=== PATIENT | female | born 1970 | race Caucasian/White ===

== ENCOUNTER 2022-12-08 14:58 | Outpatient (NON) | payer OTHER, SELFPAY | END 2022-12-08 14:59 | disposition home or self-care (01) | PROVIDERS: PCP Family Medicine; Visit Provider Nurse Practitioner | DX: C44.712 Basal cell carcinoma of skin of right lower limb, including hip (principal) | CPT/HCPCS: 88305 ==

== ENCOUNTER 2022-12-28 09:00 | Outpatient (NON) | payer OTHER, SELFPAY | END 2022-12-28 09:01 | disposition home or self-care (01) | LOC: ANHLAB 12-30 12:16 | PROVIDERS: PCP Family Medicine; Visit Provider Nurse Practitioner | DX: D48.5 Neoplasm of uncertain behavior of skin (principal) | CPT/HCPCS: 88305 ==

== ENCOUNTER 2022-12-28 11:48 | Outpatient (NON) | payer OTHER, SELFPAY | END 2022-12-28 11:49 | disposition home or self-care (01) | LOC: ANHLAB 11:49 | PROVIDERS: PCP Family Medicine; Visit Provider Nurse Practitioner | DX: C44.712 Basal cell carcinoma of skin of right lower limb, including hip (principal) | CPT/HCPCS: 88305; 88331 ==

== ENCOUNTER 2023-12-09 14:33 | Outpatient (NON) | payer OTHER, SELFPAY | END 2023-12-09 14:34 | disposition home or self-care (01) | LOC: ANHLAB 14:35 | PROVIDERS: PCP Family Medicine; Visit Provider Nurse Practitioner | DX: D48.5 Neoplasm of uncertain behavior of skin (principal) | CPT/HCPCS: 88305 ==

== ENCOUNTER 2024-01-22 18:20 | Emergency (ER) | payer OTHER, SELFPAY ==
--- NOTE | ~2024-01-22 | XR_ITS ---
EXAMINATION: XR chest 2V Exam Date/Time: 01/22/2024 18:51 FLORAL CLERK HISTORY: DRY COUGH/CONGESTION X 5 DAYS. Comparison: None. RESULT: Lines, tubes, and devices: Bilateral breast implants. Lungs and pleura: Clear. Cardiomediastinal silhouette: Normal. Other: No acute osseous or upper abdominal finding. IMPRESSION: No acute cardiopulmonary process. Reviewed, dictated and finalized at location K. AL CLERK
[2024-01-22 18:26] VITALS: BP 144/77; PULSE 66; RESP 20; TEMP 37.1; O2SAT 97
--- NOTE | 2024-01-22 19:12 | ED.URI ---
HPI - URI/Sore Throat General Chief Complaint: Upper Respiratory Infection Stated Complaint: poss bronchitis Time Seen by Provider: 01/22/24 18:35 Source: patient, family, RN notes reviewed and old records reviewed Mode of arrival: ambulatory Limitations: no limitations History of Present Illness HPI Narrative: 53 year old female who presents to [facility] accompanied by spouse with complaints of cough and congestion starting on January 17 and her PCP called in steroid and Z-pack on the for her. She reports that she continues with the cough despite medications and use of her Xopenex inhaler. Patient reports that has the same and he tested negative for COVID and flu. MD elicited complaint: cough and other (congestion) Onset (ago): day(s) (5) Severity: moderate Able to tolerate fluids by mouth: Yes Treatments prior to arrival: antibiotics and other (steroids and inhaler) Related Data Home Medications Medication Instructions Recorded Confirmed amlodipine 5 mg tablet mg 01/22/24 azithromycin 250 mg tablet mg 01/22/24 furosemide 20 mg tablet mg 01/22/24 levalbuterol tartrate 45 inhalation 01/22/24 mcg/actuation aerosol inhaler methylprednisolone 4 mg tablets in mg 01/22/24 a dose pack olmesartan 40 mg tablet mg 01/22/24 Allergies Allergy/AdvReac Type Severity Reaction Status Date / Time adhesive Allergy Intermediate Rash Verified 08/18/18 08:06 Review of Systems Review of Systems: CONSTITUTIONAL: Reports malaise,no chills, sweats, or fever. EYES: Denies visual changes, redness, or discharge. ENT: Reports rhinorrhea, congestion, no sinus pain,no otalgia and no sore throat. CARDIOVASCULAR: Denies chest pain, palpitations, or edema. RESPIRATORY: Reports cough.? Denies dyspnea. GASTROINTESTINAL: Denies abdominal pain, nausea, vomiting, diarrhea SKIN: Denies rash or itching. MUSCULOSKELETAL: Denies myalgia. NEUROLOGIC: Denies headache. All systems reviewed & are unremarkable except as noted in HPI and below [facility] Past Medical History Medical History (Updated 01/24/24 @ 17:05 by Kenna Dickey NP) Breast cancer Briana's disease Hypertension Hypothyroidism Surgical History Surgical History (Updated 01/24/24 @ 17:05 by Kenna Dickey NP) H/O breast reconstruction H/O partial thyroidectomy H/O tubal ligation History of bunionectomy Hx of bilateral mastectomy Family History Family History (Updated 08/30/14 @ 14:00 by DOCTOR UNKNOWN) Other Family history of arthritis Family history of chronic obstructive pulmonary disease Social History Social History (Updated 01/24/24 @ 17:04 by Kenna Dickey NP) Smoking packs per day: 0.5 Smoking cigarettes per day: 10.0 Years smoked: 30 Smoking pack-years: 15.00 Smoking status: Former smoker Alcohol intake: current Alcohol use details: social Substance use type: does not use Living arrangements: with family Gender identity (if verbalized by the patient): Female Comments At time of signature, agree with nursing past medical, surgical, social and family history. There is no relevant family history pertinent to the presenting complaint Exam Narrative: GENERAL: Well-appearing, well-nourished, and in no acute distress. HEAD: Normocephalic EYES: PERRLA, conjunctivae clear ENT: Nares clear, turbinates edematous and erythematous, clear discharge. Mucous membranes moist. TM pearly arreola with dull light reflex bilaterally; no tragal tenderness. Oropharynx erythematous without lesions. Tonsils not enlarged and without exudate, no drooling, no hoarseness, no trismus, uvula midline.post nasal drainage NECK: Supple. No lymphadenopathy CHEST: scattered wheezes on auscultation breath sounds equal. positive for wheezing, no rhonchi, rales, or stridor. No respiratory distress, speaks in full sentences.cough noted,SAO2 97% on room air no tachypnea HEART: Regular rate and rhythm. No m
== END 2024-01-22 19:21 | disposition home or self-care (01) ==
PROVIDERS: Emergency Provider Registered Nurse; PCP Family Medicine
DX: J40 Bronchitis, not specified as acute or chronic (principal); Z87.891 Personal history of nicotine dependence; E06.3 Autoimmune thyroiditis; I10 Essential (primary) hypertension; E03.9 Hypothyroidism, unspecified; Z85.3 Personal history of malignant neoplasm of breast; Z90.13 Acquired absence of bilateral breasts and nipples; Z90.89 Acquired absence of other organs
CPT/HCPCS: 71046; 99213; G0463

== ENCOUNTER 2025-09-06 18:45 | Emergency (ER) | payer OTHER, SELFPAY ==
[2025-09-06 18:50] VITALS: BP 153/83; PULSE 80; RESP 20; TEMP 36.4; O2SAT 99
--- NOTE | 2025-09-06 18:52 | ED_ITS ---
HPI - URI/Sore Throat General Chief Complaint: Upper Respiratory Infection Stated Complaint: upper respiratory/cough Time Seen by Provider: 09/06/25 18:53 Source: patient, RN notes reviewed and old records reviewed Mode of arrival: ambulatory Limitations: no limitations History of Present Illness HPI Narrative: 54-year-old female presents to the [facility] with a couple of complaints. Patient reports 3 days ago she ate some pot roast and had some heartburn, bloating which has improved. Yesterday started with a in switching between dry and a productive cough, chills, nasal per drainage and postnasal drainage. Denies any chest pain denies any nausea or vomiting. States that she has taken Pepcid. Denies any fevers. No cough on exam. Onset (ago): day(s) Related Data Home Medications ?Medication ?Instructions ?Recorded ?Confirmed ?Last Taken ?Type amlodipine 5 mg tablet mg 01/22/24 Unknown History furosemide 20 mg tablet mg 01/22/24 Unknown History levalbuterol tartrate 45 inhalation 01/22/24 Unknown History mcg/actuation aerosol inhaler olmesartan 40 mg tablet mg 01/22/24 Unknown History levothyroxine 125 mcg tablet mcg 09/06/25 Unknown His tory Allergies Allergy/AdvReac Type Severity Reaction Status Date / Time adhesive Allergy Intermediate Rash Verified 08/18/18 08:06 Review of Systems Review of Systems: All systems reviewed & are unremarkable except as noted in HPI and below Constitutional: Constitutional: Reports no additional constitutional complaints ENT: Reports as per HPI Cardiovascular: Cardiovascular: Reports no additional cardiovascular complaints, Denies chest pain and Denies dyspnea Respiratory: Respiratory: Reports as per HPI, Reports no additional respiratory complaints, Denies chest congestion, Reports cough and Denies dyspnea Gastrointestinal: Gastrointestinal: Reports as per HPI Musculoskeletal: Musculoskeletal: Reports no additional musculoskeletal complaints Integumentary/Breasts: Skin/Breast: Reports system reviewed and no additional complaints, except as docu PMFSH Past Medical History Medical History Briana's disease Breast cancer Hypothyroidism Hypertension Surgical History Surgical History History of bunionectomy H/O tubal ligation H/O partial thyroidectomy H/O breast reconstruction Hx of bilateral mastectomy Family History Family History Other Family history of arthritis Family history of chronic obstructive pulmonary disease Social History Social History Smoking packs per day: 0.5 Smoking cigarettes per day: 10.0 Years smoked: 30 Smoking pack-years: 15.00 Smoking status: Former smoker Alcohol intake: current Alcohol use details: social Substance use type: does not use Living arrangements: with family Gender identity (if verbalized by the patient): Female Comments At the time of my signature, I reviewed and agree with the nursing past medical, surgical, social, and family history. There is no relevant family history pertinent to the patient complaint. Exam Const: General: cooperative, healthy appearing, comfortable, no acute distress, well developed, alert and well nourished Nutritional Appearance: well nourished and obese Orientation/consciousness: patient oriented x3 Limitations: no limitations HENMT: Head: normal to inspection Ears: hearing grossly normal bilaterally, external ears normal, TM's normal bilaterally, EAC's normal, mastoids normal and no periauricular adenopathy Face and sinus: normal facial exam, sinuses nontender and face symmetric Mouth: Yes Normal oral and palatal mucosa present, Yes lip normal, Yes tongue normal and Yes moist mucous membranes abnormal Throat: posterior oropharynx normal, uvula midline, postnasal drainage and no uvular edema Eyes: General: appearance normal, both eyes and all related structures Alignment and Position: alignment normal Neck: Neck: normal visual inspection, full ROM, no lymphadenopathy and no meningeal signs Chest: Chest palpation & inspection: normal inspection of the chest Resp: Effort & Inspection: normal respiratory effort and able to speak in complete sentences Auscultation: clear to auscultation bilaterally, no crackles, no rales, no rhonchi and no wheezes Cardio: Rate: regular rate GI: GI Palp: No abdominal tenderness Skin: General skin exam: normal color and no rashes or lesions noted Neuro: General: patient oriented x3, gait normal, moves all extremities and no meningeal signs Cognition (Neuro): normal cognition Speech: normal speech Gait exam (Neuro): Normal gait present Extrem: General: normal to inspection, full ROM, capillary refill normal and normal gait Psych: Appearance: grossly normal and well kempt Mental Status: mental status grossly normal Speech and movement: Normal speech and movement present and Clear speech present Affect: normal affect Attitude: cooperative Course Course Level of Care: Express Care Visit Vital Signs Vital signs: Vital Signs Temperature 97.5 F L 09/06/25 18:50 Pulse Rate 80 09/06/25 18:50 Respiratory Rate 20 09/06/25 18:50 Blood Pressure 153/83 H 09/06/25 18:50 Pulse Oximetry 99 09/06/25 18:50 Oxygen Delivery Room Air 09/06/25 18:50 Temperature 97.5 F L 09/06/25 18:50 Pulse Rate 80 09/06/25 18:50 Respiratory Rate 20 09/06/25 18:50 Blood Pressure 153/83 H 09/06/25 18:50 Pulse Oximetry 99 09/06/25 18:50 Oxygen Delivery Room Air 09/06/25 18:50 Reviewed MDM - URI/Sore Throat MDM Narrative Medical decision making narrative: Patient sitting comfortably in exam room. Patient is nontoxic, vitals stable. Patient presents with cough, drainage. Discussed [id number] products. Flu, COVID test offered. Chest x-ray offered. Patient was also concerned for some bloating and abdominal discomfort. Discussed that unfortunately we do not do abdominal workups based on the right upper quadrant discomfort, bloating radiating into the scapular is concerns for a gallbladder which we discussed in detail. Encourage patient to follow-up with primary care provider or if symptoms persist or get worse proceed to the nearest emergency room which she verbalized understanding. Discussed appropriate [id number] products for postnasal drainage patient is appropriate for outpatient treatment with close follow-up Discharge instructions reviewed with patient, as well as provided in writing per nursing staff. The instructions also include specific and strict return/GO TO THE ER as well as f/u information. All questions have been answered, and the patient deny any further questions with discharge and discharge plan. Some parts of this dictation were generated by voice recognition software and may contain typographical and/or grammatical inaccuracies. Differential Diagnosis Differential diagnosis: Likely upper respiratory infection, otitis media, sinusitis, viral infection, bronchitis, influenza and pharyngitis Critical Care Time Critical Care Time Critical Care Time: No Discharge Plan Discharge Clinical Impression: Upper respiratory infection, PND (post-nasal drip) Patient Disposition: Home Condition: Stable Instructions: Antibiotic Form, Upper Respiratory Infection (DC), Postnasal Drip (DC) Additional Instructions: It is very important to treat your symptoms. Drink plenty of water, Gatorade, Pedialyte, ice pops or Jell-O. -Alternate Tylenol and Motrin per package directions for fever or pain. You can alternate every 4 hours -Antihistamine medication such as Zyrtec/Claritin/Ria during the day can help improve symptoms. -doing daily nasal irrigations can help relieve pressure your sinuses. Things like a Neti pot -Use Flonase twice a day for 5 days then daily to help reduce the inflammation and dry up your sinuses. -You can also use Mucinex. Be sure to drink plenty of water with this medication at least 8 ounces with every dose and it is important to drink 8 to 10 glasses of water per day. Water is a natural decongestant -Eat and drink things that are easy to swallow, like tea or soup, or popsicles. -Oral rinses such as: Salt water gargles and/or may use topical anesthetic (eg. Chloraseptic spray) or lozenges to relieve dryness or throat pain). -Frequent hand washing or hand clother in is one of the best ways to prevent spread of infection. -Using a vaporizer or humidifier at night will also help thin secretions and help with coughing up phlegm. -Follow up with primary care provider in 7-10 days if condition is not improving - For new or worsening symptoms go directly to the nearest ER Patient Language: Bermudian Prescriptions: No Action amlodipine 5 mg tablet furosemide 20 mg tablet olmesartan 40 mg tablet levalbuterol tartrate 45 mcg/actuation HFA aerosol inhaler INHALATION levothyroxine 125 mcg tablet Follow-up/Referrals: Mireille,Erick Robledo M.D. [Primary Care Provider] - 2 Weeks Referral Note: today your blood pressure was 153/83. Clinical Impression: Upper respiratory infection; PND (post-nasal drip) Stand Alone Forms: Work/School Release IP Time of Disposition: 19:21
== END 2025-09-06 19:25 | disposition home or self-care (01) ==
PROVIDERS: Emergency Provider Nurse Practitioner; PCP Family Medicine
DX: J06.9 Acute upper respiratory infection, unspecified (principal); R09.82 Postnasal drip; F17.210 Nicotine dependence, cigarettes, uncomplicated; I10 Essential (primary) hypertension; E06.3 Autoimmune thyroiditis; Z85.3 Personal history of malignant neoplasm of breast; Z90.13 Acquired absence of bilateral breasts and nipples; Z90.89 Acquired absence of other organs
CPT/HCPCS: 99211; G0463